=== PATIENT | female | born 1945 | race Caucasian/White ===

== ENCOUNTER 2017-04-10 10:27 | Outpatient (CLI) | payer MEDICARE, BC ==
[2017-04-10 12:08] LABS: Hematocrit 41.6 % (36.0-47.0); Mean Platelet Volume 9.7 fL (7.4-10.4); Red Blood Cell (RBC) Count 4.43 mill/uL (4.20-5.40); White Blood Cell (WBC) Count 6.7 thou/uL (4.8-10.8)
[2017-04-10 12:17] LABS: Prothrombin Time 12.8 SEC (12.0-14.7)
[2017-04-10 12:21] LABS: Anion Gap 12 mmol/L (10-20); BUN (Urea Nitrogen) 20 mg/dL (9.8-20.1); Calc. Creatinine Clearance 0 mL/min (70-130); Calcium 9.8 mg/dL (7.8-10.44); Carbon Dioxide 26 mmol/L (23-31); Chloride 103 mmol/L (98-107); Estimated GFR-MDRD 72
== END 2017-04-10 10:28 | disposition home or self-care (01) ==
LOC: LABBT 10:27
PROVIDERS: ATTEND Surgery
DX: Z01.818 Encounter for other preprocedural examination (principal); M48.06 Spinal stenosis, lumbar region; M54.16 Radiculopathy, lumbar region
CPT/HCPCS: 80048; 85027; 85610; 85730; 93005; 93010

== ENCOUNTER 2017-04-10 14:00 | Inpatient (IN) | payer MEDICARE, BC ==
[2017-04-10 10:38] VITALS: BMI 44.9
[2017-04-17] MEDS ORDERED: Sodium Chloride 0.9% 10 ML ONE (06:25)
[2017-04-17] MEDS ORDERED: Thrombin 5000 UNITS/5 ML VIAL ONE ×2 (06:25→10:31)
[2017-04-17] MEDS ORDERED: Fentanyl 100 MCG/2 ML VIAL ONE ×2 (06:59→12:17)
[2017-04-17] MEDS ORDERED: Clindamycin/D5W 900 mg/50 ml Premix Bag ONE (07:09)
[2017-04-17] MEDS ORDERED: Levofloxacin 500 mg/D5W 100 ml Premix Bag ONE (07:09)
[2017-04-17] MEDS ORDERED: Albumin 5% 0 ML ONE (07:30)
[2017-04-17] MEDS ORDERED: Phenylephrine 10 MG/NS 250 ML 0 ML ONE (07:30)
[2017-04-17] MEDS ORDERED: Fentanyl 250 MCG/5 ML VIAL ONE (07:55)
[2017-04-17] MEDS ORDERED: Vecuronium 10 MG VIAL ONE (08:34)
[2017-04-17] MEDS ORDERED: Propofol 200 MG/20 ML VIAL ONE (08:34)
[2017-04-17] MEDS ORDERED: ePHEDrine/0.9% NaCl/PF SYRINGE 50 mg/10 ml ONE (08:34)
[2017-04-17] MEDS ORDERED: Dexamethasone 20 MG/5 ML VIAL ONE (08:34)
[2017-04-17] MEDS ORDERED: Glycopyrrolate 0.2 MG/ML 5 ML SYRINGE ONE (08:34)
[2017-04-17] MEDS ORDERED: Lidocaine 2% PF 10 ML AMP (For Epidural Use) ONE (08:34)
[2017-04-17] MEDS ORDERED: PHENYLEPHRINE-NS 100 MCG/ML 10 ML SYRINGE ONE (08:34)
[2017-04-17] MEDS ORDERED: Ondansetron HCl/PF 4 MG/2 ML Vial IVP PRN (10:20)
[2017-04-17] MEDS ORDERED: Promethazine HCl 25 MG/ML VIAL IM PRN ×2 (10:20→11:37)
[2017-04-17] MEDS ORDERED: HYDROmorphone 2 MG/ML VIAL SLOW IVP PRN (10:20)
[2017-04-17] MEDS ORDERED: Promethazine HCl 25 MG/ML VIAL SLOW IVP PRN (10:20)
[2017-04-17] MEDS ORDERED: Bacitracin Zinc Ointment 30 gm TUBE ONE (11:00)
[2017-04-17] MEDS ORDERED: Acetaminophen/Codeine 30-300mg Tablet PO PRN (11:37)
[2017-04-17] MEDS ORDERED: Fleet Enema 133 ML BOT PR PRN (11:37)
[2017-04-17] MEDS ORDERED: traMADol HCl 50 MG TAB PO PRN (11:37)
[2017-04-17] MEDS ORDERED: Mag-Al 1200 mg/1200 mg/30 ML UDCUP PO PRN (11:37)
[2017-04-17] MEDS ORDERED: Bisacodyl 10 MG SUPP PR PRN (11:37)
[2017-04-17] MEDS ORDERED: Milk Of Magnesia 30 ML UDCUP PO PRN (11:37)
[2017-04-17] MEDS ORDERED: Acetaminophen 325 MG TAB PO PRN (11:37)
[2017-04-17] MEDS ORDERED: tiZANidine HCl 4 MG TAB PO PRN (11:37)
[2017-04-17] MEDS: Sodium Chloride 0.9% 1,000 ML IV SCH (11:45)
[2017-04-17] MEDS ORDERED: DICLOFENAC GEL 1% FS PRN (14:31)
--- NOTE | 2017-04-17 15:48 | OP ---
OR: 12. WOUND TYPE: Type 1 wound. SURGEON: Derek Moeller M.D. FOOTWEAR FACTORY WORKER: Jaleel Drew PA-C. PREPROCEDURE DIAGNOSES: Lumbar stenosis with lumbar spondylolisthesis and lumbar synovial cyst with low back and leg pain. POSTPROCEDURE DIAGNOSES: Lumbar stenosis with lumbar spondylolisthesis and lumbar synovial cyst wit h low back and leg pain. PROCEDURE: 1. L2-L3, L3-L4 laminectomies, partial facetectomies and foraminotomies L2, L3, L4 nerve roots. 2. L4-L5 laminectomy for synovial cyst removal (lumbar extradural mass removal). 3. In-situ posterolateral fusion L4-L5 with local bone autograft obtained from same incision and al lograft. DESCRIPTION OF PROCEDURE: After informed consent was obtained from the patient, the patient brought to OR 12. Proper patient pause and identification was carried out. She was placed under excellent general endotracheal anesthesia and positioned prone on the operating room table. All appropriate points were padded. We identified the L2, L3, L4, L5 dorsal spines and lamina linear nery was made over this region. This area was sterilely cleansed, prepared, and draped. Proper patient pause and identification was carried out. The wound was then opened with a combination of sharp, monopolar a nd blunt dissection. The, L2, L3, L4, L5 dorsal spines and lamina were exposed. Localization film confirmed our area of interest. We then performed L2-L3, L3-L4 laminectomies, partial facetectomies and foraminotomies with the L2, L3, L4 nerve roots. We then turned our attention to L3, L4, L5 seg ment with synovial cyst, was an L4-L5 laminectomy for synovial cyst removal was performed with remov al of very adherent synovial cyst on the right side of the common dural tube. This resulted in exce llent decompression of the common dural tube, but also bilateral C5 nerve roots. We then turned our attention to in-situ fusion, given the patient's spondylolisthesis and synovial cyst. Decorticatio n occurred in the posterior lateral regions and local bone autograft obtained from same incision and allograft was laid over this region for in-situ fusion. Copious irrigation occurred throughout. H emostasis was maximized throughout. There was no spinal fluid leak. The wound was then closed in a natomic layers following the sprinkling of vancomycin powder. The patient then emerged from anesthe monique.
[2017-04-17] MEDS: Fentanyl 100 MCG/2 ML VIAL SLOW IVP PRN (16:00)
[2017-04-17] MEDS: Clindamycin/D5W 900 MG in Premix Bag 1 BAG IVPB SCH ×2 (16:08→22:03)
[2017-04-17] MEDS: HYDROcodone/Acetaminophen 7.5/325 mg Tablet PO PRN (19:48)
[2017-04-17] MEDS: Calcium Carbonate + Vit D 1 TAB PO SCH (20:44)
[2017-04-17] MEDS: Atenolol 25 MG TAB PO SCH (20:45)
[2017-04-17] MEDS ORDERED: Simvastatin 5 MG TAB PO SCH (21:00)
[2017-04-17] MEDS ORDERED: GLUCOSAMINE CHONDROITIN PO SCH (21:00)
[2017-04-18] MEDS: Fentanyl 100 MCG/2 ML VIAL SLOW IVP PRN ×2 (00:38→09:54)
[2017-04-18] MEDS: Sodium Chloride 0.9% 1,000 ML IV SCH (02:16)
[2017-04-18] MEDS ORDERED: Digoxin 0.125 MG TAB PO SCH (09:00)
[2017-04-18] MEDS ORDERED: Vit A,C & E/Lutein/Minerals Tablet PO SCH (09:00)
[2017-04-18] MEDS ORDERED: Lisinopril 20 MG TAB PO SCH (09:00)
[2017-04-18] MEDS ORDERED: Acetaminophen ER (8hr) 650 MG TAB PO SCH (09:00)
[2017-04-18] MEDS: Calcium Carbonate + Vit D 1 TAB PO SCH (10:01)
[2017-04-18] MEDS: Atenolol 25 MG TAB PO SCH (10:13)
[2017-04-18] MEDS: HYDROcodone/Acetaminophen 7.5/325 mg Tablet PO PRN ×2 (13:03→18:32)
--- NOTE | 2017-04-18 15:00 | PRG ---
DATE OF SERVICE: 04/18/2017 Ms. Diaz is postop day #1 following lumbar laminectomy. She is doing mostly well and has tolerat ed ambulation in her room with ease. She has minimal back complaints, but does not have a strong ca re support system at the house, so at the moment we are awaiting rehab evaluation versus home health therapy. Social workers submitted all appropriate paperwork so awaiting on response there. Alexander Hawley PA-C, dictating under Dr. Cotton.
[2017-04-18 15:44] VITALS: BP 140/84; TEMP 98
== END 2017-04-18 19:20 | DRG 460 ==
LOC: SURG A 04-17 06:07 → SJJU 04-17 13:24
PROVIDERS: ADMIT Surgery; ATTEND Surgery
PROC: 0SG1071 Fusion of 2 or more Lumbar Vertebral Joints with Autologous Tissue Substitute, Posterior Approach, Posterior Column, Open Approach (ICD-10-PCS; principal; 2017-04-17)
PROC: 00NY0ZZ Release Lumbar Spinal Cord, Open Approach (ICD-10-PCS; 2017-04-17)
PROC: 0SB20ZZ Excision of Lumbar Vertebral Disc, Open Approach (ICD-10-PCS; 2017-04-17)
DX: M48.061 Spinal stenosis, lumbar region without neurogenic claudication (principal); M54.16 Radiculopathy, lumbar region; M71.38 Other bursal cyst, other site; M43.16 Spondylolisthesis, lumbar region
CPT/HCPCS: 76001; A4216; G8978-GP-CK; G8979-GP-CI; J0131; J1100; J1170; J1956; J2001; J2704; J3010; J3370; J3490; P9045

== ENCOUNTER → 2017-07-25 | Outpatient (CLI) | payer MEDICARE, BC | LOC: SLEEPLAB 19:30 | PROVIDERS: ATTEND Family Medicine | DX: G47.30 Sleep apnea, unspecified (principal); G47.33 Obstructive sleep apnea (adult) (pediatric); G47.10 Hypersomnia, unspecified; G12.21 Amyotrophic lateral sclerosis; I49.9 Cardiac arrhythmia, unspecified; I10 Essential (primary) hypertension; R51 Headache | CPT/HCPCS: 95811 ==